=== PATIENT | female | born 1985 | race Caucasian/White ===

== ENCOUNTER 2018-05-29 08:00 | Outpatient (CLI) | payer OTHER | END 2018-05-29 08:01 | disposition home or self-care (01) | LOC: LAB.R 08:00 | PROVIDERS: ATTEND Registered Nurse | DX: Z30.430 Encounter for insertion of intrauterine contraceptive device (principal) | CPT/HCPCS: 87491; 87591 ==

== ENCOUNTER 2018-09-20 08:19 | Outpatient (CLI) | payer OTHER ==
[2018-09-20 11:41] LABS: BASOPHILS % (AUTO) 0.7 %; EOSINOPHILS # (AUTO) 0.2 10^3/uL (0.0-0.7); EOSINOPHILS % (AUTO) 2.3 %; HGB - HEMOGLOBIN 13.2 g/dL (12.0-16.0); LYMPHOCYTES # (AUTO) 2.1 10^3/uL (1.5-3.5); LYMPHOCYTES % (AUTO) 30.3 %; MEAN CORPUSCULAR HEMOGLOBIN 32.5 pg (27.0-31.0); MEAN CORPUSCULAR HGB CONC 34.2 g/dL (32.0-36.0); MEAN CORPUSCULAR VOLUME 94.8 fL (81.0-99.0); MEAN PLATELET VOLUME 8.7 fL (7.9-10.8); MONOCYTES # (AUTO) 0.5 10^3/uL (0.0-1.0); MONOCYTES % (AUTO) 6.4 %; NEUTROPHILS # (AUTO) 4.2 10^3/uL (1.5-6.6); NEUTROPHILS % (AUTO) 60.3 %; PLT - PLATELET COUNT 271 10^3/uL (130-450); RED BLOOD COUNT 4.06 10^6/uL (4.20-5.40); RED CELL DISTRIBUTION WIDTH 12.7 % (12.0-15.0)
[2018-09-20 12:12] LABS: THYROID STIMULATING HORMONE 0.61 uIU/mL (0.34-5.60)
[2018-09-20 12:14] LABS: CHOL/HDL RATIO 2.4 (<4.4); CHOLESTEROL 139 mg/dL; GLUCOSE,FASTING 94 mg/dL (70-100); HDL CHOLESTEROL 57 mg/dL; LDL CHOLESTEROL,CALCULATED 74 mg/dL; LDL/HDL RATIO 1.3 (<4.4); VLDL CHOLESTEROL 8 mg/dL
[2018-09-20 12:16] LABS: PROLACTIN 12.81 ng/mL
== END 2018-09-20 08:20 | disposition home or self-care (01) ==
LOC: LAB.F 08:19
PROVIDERS: ATTEND Registered Nurse
DX: Z00.00 Encounter for general adult medical examination without abnormal findings (principal); N64.3 Galactorrhea not associated with childbirth
CPT/HCPCS: 36415; 80061; 82947; 83721; 84146; 84443; 85025

== ENCOUNTER 2019-04-03 14:49 | Emergency (ER) | payer MEDICAID, OTHER ==
[2019-04-03 14:55] VITALS: BP 142/95
[2019-04-03] MEDS ORDERED: LIDOCAINE 2%-EPI 1:100000 20 ML MDV SUBQ STA (15:06)
--- NOTE | 2019-04-03 15:07 | ED Physician Documentation ---
History of Present Illness - Stated complaint Stated Complaint: FEMALE - Chief complaint Chief Complaint: General - History obtained from History obtained from: Patient - History of Present Illness Timing: Other (33-year-old woman with history of hemorrhoids presents with 4 days of a painful hemorrhoid with some bleeding.) Review of Systems Constitutional: reports: Reviewed and negative Throat: reports: Reviewed and negative Cardiac: reports: Reviewed and negative PD PAST MEDICAL HISTORY - Past Surgical History Past Surgical History: No - Present Medications Home Medications: Ambulatory Orders Medication Instructions Recorded Confirmed Docusate Sodium [Dulcolax Stool 100 mg PO BID #60 capsule 04/03/19 Softener] Hydrocodone/Acetaminophen 1 - 2 each PO Q6H PRN #14 tablet 04/03/19 [Hydrocodon-Acetaminophen 5-325] Hydrocortisone [Anusol-Hc] 30 gm RC QID #30 cream..g. 04/03/19 Polyethylene Glycol 3350 [Miralax] 17 gm PO DAILY PRN #1 bottle 04/03/19 - Allergies Allergies/Adverse Reactions: Allergies Allergy/AdvReac Type Severity Reaction Status Date / Time No Known Drug Allergies Allergy Verified 04/03/19 14:55 - Social History Does the pt smoke?: Yes Smoking Status: Current some day smoker Does the pt drink ETOH?: Yes Does the pt have substance abuse?: No - Immunizations Immunizations are current?: Yes PD ED PE NORMAL - Vitals Vital signs reviewed: Yes - General General: Alert and oriented X 3, No acute distress - Rectal Rectal: Other (with [employer] B tech present, 1 thrombosed hemorrhoid in 1 that is already opened up and bleeding a little bit.) - Neuro Neuro: Alert and oriented X 3, Normal speech Results - Vitals Vitals: Vital Signs - 24 hr 04/03/19 14:52 Temperature 35.9 C L Heart Rate 77 Respiratory 19 Rate Blood Pressure 142/95 H O2 Saturation 99 Oxygen O2 Source Room air Procedures - General procedure General procedure: After discussion and verbal informed consent the base of the thrombosed hemorrhoid was anesthetized with 1% lidocaine with excellent anesthesia. A incision was made over the hemorrhoid, but not much blood was obtained or clots. I think given the time course it is already started to involute. Departure - Departure Disposition: 01 Home, Self Care Clinical Impression: Hemorrhoids Qualifiers: Hemorrhoid type: third degree Qualified Code(s): K64.2 - Third degree hemorrhoids Condition: Good Record reviewed to determine appropriate education?: Yes Instructions: ED Hemorrhoids, Sitz Bath Follow-Up: Berenice Mayer MD [Provider Admit Priv/Credential] - Prescriptions: Docusate Sodium [Dulcolax Stool Softener] 100 mg PO BID #60 capsule Hydrocodone/Acetaminophen [Hydrocodon-Acetaminophen 5-325] 1 - 2 each PO Q6H PRN #14 tablet PRN Reason: pain Hydrocortisone [Anusol-Hc] 30 gm RC QID #30 cream..g. Polyethylene Glycol 3350 [Miralax] 17 gm PO DAILY PRN #1 bottle PRN Reason: Constipation
[2019-04-05 10:16] LABS: HSV 1 IGG TYPE SPECIFIC AB <0.90 index; HSV 2 IGG TYPE SPECIFIC AB <0.90 index
== END 2019-04-03 15:39 | disposition home or self-care (01) ==
LOC: ED 14:49
DX: K64.2 Third degree hemorrhoids (principal); F17.200 Nicotine dependence, unspecified, uncomplicated
CPT/HCPCS: 36415; 46083; 86695; 86696

== ENCOUNTER 2020-10-09 13:26 | Outpatient (CLI) | payer MEDICAID ==
--- NOTE | 2020-10-09 17:02 | XRAY Report ---
PROCEDURE: Knee 4 View LT INDICATIONS: KNEE LIGAMENT LAXITY TECHNIQUE: 4 views of the left knee were acquired. COMPARISON: None. FINDINGS: Bones: No fractures or dislocations. There are postsurgical changes consistent with prior ACL recon struction. There is minimal joint space narrowing in the medial compartment. No suspicious bony lesio ns. Soft tissues: No joint effusion. No suspicious soft tissue calcifications. IMPRESSION: 1. Minimal joint space narrowing in the medial compartment. Reviewed by: August Marquez MD on 10/09/2020 5:00 PM [facility] Approved by: August Marquez MD on 10/09/2020 5:00 PM [facility] Station ID: [id number]
== END 2020-10-09 23:59 | disposition home or self-care (01) ==
LOC: DI.N 13:26
PROVIDERS: ATTEND Physician Assistant
DX: M25.862 Other specified joint disorders, left knee (principal)

== ENCOUNTER 2020-12-14 07:00 | Outpatient (CLI) | payer MEDICAID | END 2020-12-14 23:59 | disposition home or self-care (01) | LOC: COV 07:00 | PROVIDERS: ATTEND Physician Assistant | DX: Z01.812 Encounter for preprocedural laboratory examination (principal); Z20.822 Contact with and (suspected) exposure to COVID-19 ==

== ENCOUNTER 2021-12-14 08:00 | Outpatient (CLI) | payer MEDICAID | END 2021-12-14 23:59 | disposition home or self-care (01) | LOC: LAB.S 08:00 | PROVIDERS: ATTEND Physician Assistant Medical | DX: R07.0 Pain in throat (principal) | CPT/HCPCS: 87070 ==

== ENCOUNTER 2022-06-10 14:17 | Outpatient (CLI) | payer MEDICAID | END 2022-06-10 14:18 | disposition home or self-care (01) | LOC: LAB.S 14:17 | PROVIDERS: ATTEND Physician Assistant | DX: R05.9 Cough, unspecified (principal); Z20.822 Contact with and (suspected) exposure to COVID-19 | CPT/HCPCS: 87275; 87276 ==

== ENCOUNTER 2022-12-14 10:20 | Outpatient (CLI) | payer MEDICAID ==
[2022-12-14 14:23] LABS: BASOPHILS # (AUTO) 0.1 10^3/uL (0.0-0.1); BASOPHILS % (AUTO) 0.6 %; EOSINOPHILS # (AUTO) 0.2 10^3/uL (0.0-0.7); EOSINOPHILS % (AUTO) 1.9 %; HCT - HEMATOCRIT 41.7 % (37.0-47.0); HGB - HEMOGLOBIN 13.7 g/dL (12.0-16.0); LYMPHOCYTES # (AUTO) 1.7 10^3/uL (1.5-3.5); LYMPHOCYTES % (AUTO) 21.1 %; MEAN CORPUSCULAR HEMOGLOBIN 32.3 pg (27.0-31.0); MEAN CORPUSCULAR HGB CONC 32.9 g/dL (32.0-36.0); MEAN CORPUSCULAR VOLUME 98.3 fL (81.0-99.0); MEAN PLATELET VOLUME 9.7 fL (7.9-10.8); MONOCYTES # (AUTO) 0.5 10^3/uL (0.0-1.0); MONOCYTES % (AUTO) 6.3 %; NEUTROPHILS # (AUTO) 5.6 10^3/uL (1.5-6.6); NEUTROPHILS % (AUTO) 69.9 %; PLT - PLATELET COUNT 328 10^3/uL (130-450); RED BLOOD COUNT 4.24 10^6/uL (4.20-5.40); RED CELL DISTRIBUTION WIDTH 12.7 % (12.0-15.0); WHITE BLOOD COUNT 8.1 x10^3/uL (4.8-10.8)
[2022-12-14 15:23] LABS: ALBUMIN 3.9 g/dL (3.2-5.5); ALBUMIN/GLOBULIN RATIO 1.2 (1.0-2.2); ALKALINE PHOSPHATASE 94 IU/L (42-121); ALT ALANINE AMINOTRANSFERASE 15 IU/L (10-60); AST ASPARTATE AMINOTRANSFERASE 20 IU/L (10-42); BILIRUBIN,TOTAL 0.7 mg/dL (0.2-1.0); BUN - BLOOD UREA NITROGEN 13 mg/dL (6-20); CALCIUM 9.3 mg/dL (8.5-10.3); CARBON DIOXIDE - CO2 28 mmol/L (21-32); CHLORIDE 101 mmol/L (101-111); CHOLESTEROL 196 mg/dL; CREATININE 0.7 mg/dL (0.4-1.0); GFR - MDRD 93 (>89); GLUCOSE 103 mg/dL (70-100); HDL CHOLESTEROL 65 mg/dL; LDL CHOLESTEROL,CALCULATED 97 mg/dL; LDL/HDL RATIO 1.5 (<4.4); POTASSIUM 4.3 mmol/L (3.5-5.0); SODIUM 135 mmol/L (135-145); TOTAL PROTEIN 7.1 g/dL (6.7-8.2); TRIGLYCERIDES 171 mg/dL; VLDL CHOLESTEROL 34 mg/dL
[2022-12-14 20:33] LABS: ESTIMATED AVERAGE GLUCOSE 105 mg/dL (70-100); HEMOGLOBIN A1c% 5.3 % (4.27-6.07)
== END 2022-12-14 10:21 | disposition home or self-care (01) ==
LOC: LAB.S 10:20
PROVIDERS: ATTEND Nurse Practitioner Acute Care
DX: Z13.228 Encounter for screening for other metabolic disorders (principal); Z13.220 Encounter for screening for lipoid disorders; Z13.1 Encounter for screening for diabetes mellitus; Z13.29 Encounter for screening for other suspected endocrine disorder; Z13.0 Encounter for screening for diseases of the blood and blood-forming organs and certain disorders involving the immune mechanism
CPT/HCPCS: 36415; 80053; 80061; 83036; 83721; 84443; 85025